=== PATIENT | female | born 1990 | race Two or more races ===

== ENCOUNTER 2022-12-27 05:12 | Day surgery (SDC) | payer OTHER ==
[~2022-12-27] VITALS: Ht 165.1 cm; Wt 68.0 kg
[~2022-12-27 05:12] MED LIST: ZYRTEC10 M3 PO
== END 2022-12-27 12:30 | disposition home or self-care (01) ==
LOC: CIR.AMB 05:12
PROVIDERS: ATTEND Otolaryngology
DX: C73 Malignant neoplasm of thyroid gland (principal); E04.2 Nontoxic multinodular goiter; Z20.822 Contact with and (suspected) exposure to COVID-19